=== PATIENT | male | born 1945 | race Caucasian/White ===

== ENCOUNTER 2017-09-29 06:32 | Outpatient (CLI) ==
[2015-09-18 19:03] VITALS: BMI 29.8
== END 2017-09-29 06:33 | disposition home or self-care (01) ==
LOC: CAR 06:32
PROVIDERS: ATTEND Physician Assistant
DX: R01.1 Cardiac murmur, unspecified (principal)
CPT/HCPCS: 93005; 93010

== ENCOUNTER 2017-10-07 08:22 | Outpatient (CLI) ==
[2015-09-18 19:03] VITALS: BMI 29.8
--- NOTE | 2017-10-07 09:19 | US ---
EXAM: Abdominal aortic ultrasound HISTORY: Screening for abdominal aortic aneurysm. COMPARISON: None TECHNIQUE: Sonographic and Doppler evaluation of the aorta was performed. FINDINGS: The aorta demonstrates mild scattered calcific atherosclerosis. The aorta is patent throu ghout its course. The proximal aorta measures 2.0 x 2.0 cm. The mid aorta measures 2.2 x 1.8 cm. The distal aorta measures 1.6 x 1.6 cm. The right iliac measures 1.0 x 0.9 cm. The left iliac measures 1.0 x 1.1 cm. IMPRESSION: Scattered mild atherosclerotic disease with no evidence of aneurysm.
== END 2017-10-07 08:23 | disposition home or self-care (01) ==
LOC: RAD 08:22
PROVIDERS: ATTEND Physician Assistant
DX: Z76.89 Persons encountering health services in other specified circumstances (principal)
CPT/HCPCS: 76706

== ENCOUNTER 2017-10-22 06:41 | Outpatient (CLI) | payer OTHER ==
[2015-09-18 19:03] VITALS: BMI 29.8
--- NOTE | 2017-10-23 09:01 | STRESSECHO ---
Date of Test: 10/22/17 Reason for Exam: SOB/ CABG 2005 Ordering Physician: DAMON OAKES/HALEY DONAHUE Current Medications: LISINOPRIL, AMLODIPINE, SIMVASTATIN, ATIVAN, SYMBICORT Physical Findings: S1, S2, NO S3 Resting EKG: SINUS RHYTHM/ NO ACUTE CHANGES Target Heart Rate: 127/150 STAGE MPH/GRADE HEART RATE BPM BLOOD PRESSURE mmhg RHYTHM S-T SEGMENT +/- UP DOWN SYMPTOMS,COMMENTS At Rest 60 112/78 SR X NONE 1 1.7/10% 100 144/70 SR X NONE 2 2.5/12% 3 3.4/14% 4 4.2/16% 5 5.0/18% Immediately after 130 SR X LEG PAIN Durations of Exercise: 5:00 Maximum Heart Rate Reached: 130 Reason for Termination: LEG PAIN 5 MINUTES POST EXERCISE: HR 73 BPM, BP 156/80 MMHG, SINUS RHYTHM, NO ST CHANGES , NO COMMENTS/SYMPTOMS INTERPRETATION: 93% OXYGEN SATURATION WITH EXERCISE ON ROOM AIR 1. NO EVIDENCE OF ISCHEMIA BY ST-T WAVE 2. NO CHEST PAIN OR CHEST DISCOMFORT 3. POST EXERCISE--FEW PAC'S 4. BLOOD PRESSURE RESPONSE: NORMAL HYPOKINETIC SEPTAL WALL AT REST AND WITH IMPROVED LEFT VENTRICLE CONTRACTILITY WITH EXERCISE MTDD
--- NOTE | 2017-10-23 09:05 | ECHOSTRESS ---
Date of Exam: 10/22/17 Ordering Physician: DAMON OAKES/ HALEY HAMILTON Reason for Echo: SOB/CABG STRESS TEST--NO ISCHEMIA M-Mode Normal Adult Results LV Dimensions Normal Adult Results AoV Opening excursions >1.6 LVEDD-base- 3.5-5.8 Ao root dimensions 2.0-3.7 LVESD-base- 3.1-4.6 L. Atrium dimensions 1.9-3.8 Post. Wall thickness 0.8-1.1 IV septum (thickness) 0.7-1.2 Post. Wall excursion 0.72-1.3 Septal motion Systolic motion R. Ventricular cavity 1.5-2.0 LVEF 60% Paradoxical septal wall motion 2-D: HYPOKINETIC SEPTUM AT REST WITH IMPROVED LEFT VENTRICULAR CONTRACTILITY WITH EXERCISE M-MODE: MV: AV: TV: PV: CHAMBER SIZE: WALL MOTION: HYPOKINETIC SEPTUM AT REST WITH IMPROVED LEFT VENTRICULAR CONTRACTILITY WITH EXERCISE PERICARDIUM: INTERPRETATION: 1. HYPOKINETIC SEPTUM AT REST WITH IMPROVED LEFT VENTRICULAR CONTRACTILITY WITH EXERCISE MTDD
== END 2017-10-22 06:42 | disposition home or self-care (01) ==
LOC: CAR 06:41
PROVIDERS: ATTEND Internal Medicine
DX: J44.9 Chronic obstructive pulmonary disease, unspecified (principal); R06.02 Shortness of breath; Z95.1 Presence of aortocoronary bypass graft

== ENCOUNTER 2017-10-24 11:01 | Outpatient (CLI) ==
[2015-09-18 19:03] VITALS: BMI 29.8
--- NOTE | 2017-10-24 11:36 | DI ---
EXAM: Two-view chest HISTORY: Chronic obstructive pulmonary disease COMPARISON: To view chest 07/23/2012 FINDINGS: The heart is normal in size. Atherosclerotic changes are seen involving the aortic arch. Sternal wire sutures noted. The lungs are mildly hyperinflated. IMPRESSION: Prior mediastinotomy. Mild bilateral hyperinflation without interval change or active disease
== END 2017-10-24 11:02 | disposition home or self-care (01) ==
LOC: RAD 11:01
PROVIDERS: ATTEND Physician Assistant
DX: J44.9 Chronic obstructive pulmonary disease, unspecified (principal)